=== PATIENT | male | born 1955 | race Caucasian/White ===

== ENCOUNTER 2024-09-12 08:27 | Emergency (ER) | payer MEDICARE, OTHER ==
[~2024-09-12] VITALS: Ht 170.2 cm; Wt 88.6 kg
[2024-09-12] MEDS ORDERED: ATOR10TA PO (08:38)
[2024-09-12] MEDS ORDERED: ALBU18HF12 IH (08:38)
[2024-09-12] MEDS ORDERED: ALLO-97 PO (08:38)
[2024-09-12] MEDS ORDERED: LORA10TA7 PO (08:38)
[2024-09-12] MEDS ORDERED: BUSP5TAB20 PO (08:38)
[2024-09-12] MEDS ORDERED: OMEP10CA38 PO (08:38)
[2024-09-12] MEDS ORDERED: ACET-66 PO (09:02)
[2024-09-12] MEDS: ACETAMINOPHEN 500 MG TABLET PO ONE (09:13)
[2024-09-12 09:15] VITALS: BP 122/76; PULSE 62; RESP 12; TEMP 97.8; O2SAT 97
[2024-09-12] MEDS: ERYTHROMYCIN 0.5% 3.5 GM TUBE OPHTHALMIC OINTMENT OD ONE (09:26)
== END 2024-09-12 09:33 | disposition home or self-care (01) ==
LOC: EMS 08:33
DX: S05.11XA Contusion of eyeball and orbital tissues, right eye, initial encounter (principal); E78.00 Pure hypercholesterolemia, unspecified; F41.9 Anxiety disorder, unspecified; M10.9 Gout, unspecified; K21.9 Gastro-esophageal reflux disease without esophagitis; Z79.899 Other long term (current) drug therapy; W44.9XXA Unspecified foreign body entering into or through a natural orifice, initial encounter; Y93.89 Activity, other specified; Y92.89 Other specified places as the place of occurrence of the external cause; Y99.8 Other external cause status
CPT/HCPCS: 99283